=== PATIENT | male | born 1990 | race Caucasian/White ===

== ENCOUNTER 2022-03-02 14:42 | Emergency (ER) | payer OTHER ==
[2022-03-02] MEDS ORDERED: BACITRACIN OINTMENT 30GM TUBE TOP ONE (16:25)
[2022-03-02 16:35] VITALS: BP 126/90
== END 2022-03-02 16:52 | disposition home or self-care (01) ==
LOC: M ED 14:42
DX: S61.302A Unspecified open wound of right middle finger with damage to nail, initial encounter (principal); W26.0XXA Contact with knife, initial encounter; Y92.009 Unspecified place in unspecified non-institutional (private) residence as the place of occurrence of the external cause